=== PATIENT | male | born 1940 | race Caucasian/White ===

== ENCOUNTER 2020-09-24 10:36 | Outpatient (REF) | payer MEDICARE, SELFPAY ==
[2020-09-24 14:38] LABS: Anion Gap 14 (12-20); Blood Urea Nitrogen 17 mg/dL (9-16); Carbon Dioxide 26 mmol/L (22-29); Chloride 104 mmol/L (96-108); Estimated Glomerular Filt Rate > 60; Potassium 4.3 mmol/l (3.3-5.1); Sodium 140 mmol/L (135-145)
== END 2020-09-24 10:37 | disposition home or self-care (01) ==
LOC: HO.10HDL 10:36
PROVIDERS: PCP Family Medicine; Visit Provider Family Medicine
DX: I10 Essential (primary) hypertension (principal)
CPT/HCPCS: 80051; 82565; 84520

== ENCOUNTER 2021-04-09 11:00 | Outpatient (REF) | payer MEDICARE, SELFPAY ==
[2021-04-09 13:55] LABS: Anion Gap 14 (12-20); Blood Urea Nitrogen 16 mg/dL (9-16); Carbon Dioxide 26 mmol/L (22-29); Chloride 106 mmol/L (96-108); Estimated Glomerular Filt Rate > 60; Potassium 4.7 mmol/L (3.3-5.1); Sodium 141 mmol/L (135-145)
== END 2021-04-09 11:01 | disposition home or self-care (01) ==
LOC: HO.10HDL 11:00
PROVIDERS: Visit Provider Family Medicine
DX: I10 Essential (primary) hypertension (principal)
CPT/HCPCS: 36415; 80051; 82565; 84520

== ENCOUNTER 2021-10-23 11:00 | Outpatient (REF) | payer MEDICARE, SELFPAY ==
[2021-10-23 14:37] LABS: Anion Gap 12 (12-20); Blood Urea Nitrogen 17 mg/dL (9-16); Carbon Dioxide 27 mmol/L (22-29); Chloride 107 mmol/L (96-108); Estimated Glomerular Filt Rate > 60; Potassium 4.6 mmol/L (3.3-5.1); Sodium 141 mmol/L (135-145)
== END 2021-10-23 11:01 | disposition home or self-care (01) ==
LOC: HO.10HDL 11:00
PROVIDERS: Visit Provider Family Medicine
DX: I10 Essential (primary) hypertension (principal)
CPT/HCPCS: 36415; 80051; 82565; 84520

== ENCOUNTER → 2021-10-30 08:33 | Outpatient (BNVA) | payer MEDICARE, SELFPAY | PROVIDERS: PCP Family Medicine; Visit Provider Surgery | DX: L98.9 Disorder of the skin and subcutaneous tissue, unspecified (principal) | CPT/HCPCS: 99202 ==

== ENCOUNTER 2021-11-21 07:32 | Outpatient (REF) | payer MEDICARE, SELFPAY ==
[2021-11-21 07:42] VITALS: BP 163/84; PULSE 74; RESP 16; TEMP 36.1; O2SAT 98; BMI 25.9
[2021-11-21 08:41] VITALS: BP 157/80; PULSE 66; RESP 16; O2SAT 100
--- NOTE | 2021-11-21 08:41 | W.PM.OPN ---
Operative Note Operative Note Date of Service: 11/21/21 Narrative: Preop diagnosis: Skin lesions, left anterior chest wall, left upper back, left upper arm Postop diagnosis: the same Procedure: Excision of skin lesion, left anterior chest wall, left upper back, left upper arm Surgeon: Torrey Rogers MD gynecological assistant: STEPHEN Polo The patient is an 81-year-old male with multiple skin lesions. The lesion of the anterior chest wall is about 2.5 x 2 cm, pigmented and elevated. This skin lesion on the left upper back was about 2 cm in widest diameter also pigmented and on a stalk. The skin lesion on the left upper arm is about does than 1 cm in diameter on a very narrow stalk. He understood the technique of excision under local anesthesia. He was aware of the risks, benefits, and alternatives He was brought to the minor procedure room and placed in prone position. The back lesion was prepped and draped in the usual sterile fashion. I infiltrated the area with lidocaine 1%. I made an elliptical incision around this using blade 15 wiith margins of normal looking skin. This was carried down through the full-thickness of the skin and subcutaneous fat to excise the entire lesion. This was sent as a specimen. The incision was closed with full-thickness nylon 3-0 interrupted sutures. Dressings were applied. The patient was then placed in supine position. The area of the skin lesion on the left anterior chest wall was prepped and draped. Lidocaine 1% was used for local anesthesia. I made an elliptical incision around this skin lesion using a blade 15 with normal looking skin margins. This was carried down through the full-thickness of the skin and subcutaneous fat to excise the entire lesion. This was sent as a specimen. This incision was closed with multiple nylon 3-0 interrupted sutures The area of the lesion in the left upper arm was then prepped and draped. Lidocaine 1% was used for local anesthesia. An elliptical incision was made on the skin surrounding this using blade 15 and this carried down through the full-thickness of the skin subcutaneous fat to excise the entire lesion. This was sent as specimen. The incision was also closed with full-thickness nylon 3-0 interrupted sutures. Dressings were applied on all incisions. The procedure was then completed . The patient tolerated procedure well with no complication noted. Estimated blood loss was less than 2 cc The patient was given wound care instructions and will be seen in the office for removal sutures.
== END 2021-11-21 07:33 | disposition home or self-care (01) ==
LOC: HO.MS 07:32
PROVIDERS: PCP Family Medicine; Visit Provider Surgery
PROC: (CPT 11403; principal; 2021-11-21 08:00)
DX: L82.1 Other seborrheic keratosis (principal)
CPT/HCPCS: 11403 ×2; 11402; 88305

== ENCOUNTER 2021-11-27 09:10 | Inpatient (IN) | payer MEDICARE, SELFPAY ==
--- NOTE | ~2021-11-27 | CT_ITS ---
EXAMINATION: CT HEAD WITHOUT CONTRAST (STROKE PROTOCOL) CLINICAL INFORMATION: Stroke protocol. Left leg weakness. COMPARISON: Previous head CT November 2013 TECHNIQUE: Contiguous axial imaging was performed from the skull base to vertex without intravenous administration of contrast. This CT examination was performed using dose optimization techniques as appropriate, variously including the following: *Automated exposure control *Adjustment of mA and/or kV according to patient size (this includes techniques or standardized protocols for targeted exams where dose is matched to indication/reason for exam; i.e. extremities or head) *Use of iterative reconstruction technique DLP: 721 mGy-cm FINDINGS: There is no evidence of an extra-axial collection. There is no evidence of intra-axial or extra-axial hemorrhage. The ventricles and extra-axial CSF spaces are prominent suggestive of mild generalized atrophy. There is mild nonspecific periventricular white matter disease. No mass, mass effect or infarct is seen. Review of bone windows is normal. Paranasal sinuses, mastoid air cells and middle ears are clear. CT/CT head for stroke IMPRESSION: No acute intracranial findings. This critical result was discussed with Dr. Franks at 0940 hours on 11/27/2021. It was ascertained that the content and urgency of the report was understood at the time of direct communication.
--- NOTE | ~2021-11-27 | CT_ITS ---
EXAMINATION: CTA OF THE HEAD AND NECK CLINICAL INFORMATION: Left leg weakness. COMPARISON: Head CT from 11/27/2021. TECHNIQUE: Test bolus sequences followed by intravenous administration 70 mL of Omnipaque 350. Helical imaging was performed in the axial plane from the mediastinum to the skull vertex. Delayed postcontrast imaging of the head was also performed. The data was processed at the clinical laboratory technologist's workstation for generation of MIP sequences. Three-dimensional volume rendered reformatted images were also generated at an offline 3-D workstation. Stenoses are assessed in accordance with NASCET criteria unless otherwise indicated. This CT examination was performed using dose optimization techniques as appropriate, variously including the following: *Automated exposure control *Adjustment of mA and/or kV according to patient size (this includes techniques or standardized protocols for targeted exams where dose is matched to indication/reason for exam; i.e. extremities or head) *Use of iterative reconstruction technique DLP: 1606 mGy-cm. FINDINGS: CTA neck: The imaged aortic arch and origins of the great vessels are normal. The common carotid arteries are widely patent. The carotid bifurcations are normal. The cervical internal carotid arteries are normal. The vertebral arteries opacify normally, but have a mild beaded appearance in the upper cervical segments which may signify underlying fibromuscular dysplasia. The soft tissues of the neck are unremarkable. Multilevel cervical spondylosis and facet arthropathy noted. Subsegmental atelectatic changes visible in the lungs. CTA head: The intradural vertebral arteries and basilar artery are normal. The posterior cerebral arteries are widely patent. The internal carotid arteries are of normal caliber. The PARAMJIT and MCA vascular complexes bilaterally are normal. The venous sinuses opacify normally. CT/CT angio head neck stroke IMPRESSION: Mildly beaded appearance of the upper cervical vertebral arteries which may be due to underlying fibromuscular dysplasia. Otherwise, relatively normal CT angiogram of the head and neck. No vascular occlusion or significant stenosis. Imaging findings reported to Dr. Franks at 10:22 AM on 11/27/2021.
--- NOTE | ~2021-11-27 | MR_ITS ---
MRI OF THE BRAIN WITHOUT IV CONTRAST INDICATION: CVA. COMPARISON: CTA head and neck 11/27/2021. TECHNIQUE: Multiplanar multisequence MR imaging of the brain was obtained without IV contrast. FINDINGS: There is a small acute infarct at the junction of the right thalamus and posterior limb of the right internal capsule. There are also punctate acute infarcts within the right occipital lobe as well as the frontal lobes bilaterally and the left parietal lobe. A small lipoma is incidentally noted along the left tentorial leaflet. There is no hydrocephalus, extra-axial surface collection, or herniation. The major flow voids at the skull base are preserved. There is no intracranial hemorrhage on the gradient recalled echo acquisition. The midline structures are normal. The cerebellar tonsils are normally positioned. The cerebellum and brainstem are normal. The craniocervical junction is normal. Osseous marrow signal intensity is homogenous. The visualized soft tissues are unremarkable. MR/MR head/brain wo con IMPRESSION: - There is a small acute infarct at the junction of the right thalamus and posterior limb of the right internal capsule. There are also punctate acute infarcts within the right occipital lobe as well as the frontal lobes bilaterally and the left parietal lobe. - No mass effect and no hemorrhagic transformation.
[2021-11-27 09:13] VITALS: BP 178/88; PULSE 71; RESP 19; TEMP 36.1; O2SAT 99; BMI 26.2
--- NOTE | 2021-11-27 09:43 | ECG_ITS ---
Test Reason : stroke Blood Pressure : / mmHG Vent. Rate : 067 BPM Atrial Rate : 067 BPM P-R Int : 192 ms QRS Dur : 098 ms QT Int : 384 ms P-R-T Axes : 068 -06 010 degrees QTc Int : 405 ms Normal sinus rhythm Incomplete right bundle branch block Abnormal ECG When compared with ECG of 06-JUL-2009 14:42, Premature supraventricular complexes are no longer Present Referred By: Kimani Franks Electronically Signed By:Ruben Brito
[2021-11-27 09:50] LABS: Glucose, Whole Blood 97 mg/dL (60-115)
--- NOTE | 2021-11-27 09:50 | ED_ITS ---
HPI - Neuro Symptoms/Deficit General Chief Complaint: Stroke Stated Complaint: Left sided weakness Time Seen by Provider: 11/27/21 09:42 Source: patient Limitations: no limitations History of Present Illness HPI Narrative: pt presented to the ed c/o left leg weakness Onset (ago): hour(s) (4) Location: other (left leg weakness) History of same: No Severity: mild Quality: weak Relieving factors: none Related Data Home Medications Medication Instructions Recorded Confirmed losartan 50 mg tablet 50 mg PO DAILY 08/02/21 11/27/21 metoprolol succinate 50 mg 50 mg PO DAILY 08/02/21 11/27/21 tablet,extended release 24 hr cholecalciferol (vitamin D3) 25 25 mcg PO DAILY 11/27/21 11/27/21 mcg (1,000 unit) tablet (Vitamin D3) multivitamin 1 tab PO DAILY 11/27/21 11/27/21 Allergies Allergy/AdvReac Type Severity Reaction Status Date / Time No Known Allergies Allergy Verified 10/30/21 08:58 Review of Systems Review of Systems: Yes all other systems are reviewed and are negative Constitutional: Constitutional: Reports no additional constitutional complaints Eyes: Eyes: Reports no additional eye complaints ENT: Reports system reviewed and no additional complaints, except as documented Cardiovascular: Cardiovascular: Reports no additional cardiovascular complaints Respiratory: Respiratory: Reports no additional respiratory complaints Gastrointestinal: Gastrointestinal: Reports no additional gastrointestinal complaints Genitourinary: Genitourinary: Reports no additional male genitourinary complaints Integumentary/Breasts: Skin/Breast: Reports system reviewed and no additional complaints, except as docu Neurologic: Reports system reviewed and no additional complaints, except as documented Psychiatric: Psychiatric: Reports no additional psychiatric complaints Endocrine: Endocrine: Reports no additional endocrine complaints [facility] Past Medical History Medical History Hypertension Skin lesions Family History Family History Other Lung cancer Pancreatic cancer Social History Social History Advance Directives: Yes Advance Directives Information Provided: No Advance Directives on File: No Physical Exam Vital Signs: Vital Signs: Last Vital Signs Temp 98.0 F 11/27/21 12:36 Pulse 77 11/27/21 12:36 Resp 13 11/27/21 12:36 BP 169/87 H 11/27/21 12:36 Pulse Ox 98 11/27/21 12:36 BMI result Body Mass Index 26.2 Const: General: cooperative Nutritional Appearance: average body habitus Orientation/consciousness: oriented to person and patient oriented x3 Limitations: no limitations HENMT: Head: Yes normal to inspection Ears: hearing grossly normal bilaterally General nose exam: Normal external nose present Face and sinus: Yes normal facial exam Mouth: Normal oral and palatal mucosa present Teeth and gingiva: dentition normal Throat: Yes posterior oropharynx normal Neck: Neck: Yes normal visual inspection Chest: Chest palpation & inspection: normal inspection of the chest Resp: Effort & Inspection: normal respiratory effort and able to speak in complete sentences Auscultation: clear to auscultation bilaterally Cardio: Jugular venous distension: no JVD Rate: regular rate Rhythm: regular rhythm GI: Inspection: Yes normal to inspection Palpation (GI): Soft to palpation, not firm and no guarding Percussion: Yes normal to percussion Skin: General skin exam: no rashes or lesions noted Neuro: General: oriented to person and patient oriented x3 Cranial nerves: Yes CN's II-XII intact bilaterally Cognition (Neuro): normal cognition Motor exam (neuro): 5/5 motor strength present throughout and Pronator motor function not present Course Reevaluation(s) Reevaluation #1: 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 I spoke with Dr Snell neurologist Also patient does not an elevated troponin but no chest pain and normal EKG will trend EKG MDM - Neuro Symptoms/Deficit Lab Data Result diagrams: 11/27/21 09:50 11/27/21 11:23 Labs: Lab Results 11/27/21 11/27/21 11/27/21 Range/Units 09:43 09:44 09:50 WBC 6.1 (4.8-10.8) X10*3/uL RBC 5.07 (4.60-5.80) X10*6/uL Hgb 15.9 (14.0-18.0) g/dl Hct 47.0 (42.0-52.0) % MCV 92.7 (80.0-98.0) fL MCH 31.4 (27.0-33.0) pg MCHC 33.8 (31.0-36.0) g/dl RDW 13.2 (11.0-16.0) % Plt Count 170 (160-400) X10*3/uL MPV 9.3 L (9.4-12.4) fL Immature Gran % (Auto) 0.3 (0.0-0.4) % Neut % (Auto) 70.3 (45-73) % Lymph % (Auto) 16.4 L (20-40) % Sunflower % (Auto) 8.0 (2-11) % Eos % (Auto) 3.9 (0-4) % Baso % (Auto) 1.1 (0-2) % Lymph # (Auto) 1.0 L (1.2-4.9) X10*3/uL Sunflower # (Auto) 0.5 (0.1-1.2) X10*3/uL Eos # (Auto) 0.2 (0.0-0.4) X10*3/uL Baso # (Auto) 0.1 (0.0-0.2) X10*3/uL Abs Immat Gran (auto) 0.02 (0.00-0.03) X10*3/uL Absolute Neuts (auto) 4.3 (2.0-8.3) x10*3/uL Absolute Nucleated RBC 0.000 (0.0-0.012) X10*3/uL Nucleated RBC % (auto) 0.0 (0.0-0.2) /100WBC PT (9.9-13.0) SEC Whole Blood PT 13.3 (11.1-13.5) sec INR (0.9-1.1) Whole Blood INR 1.1 (0.9-1.1) Sodium (135-145) mmol/L Potassium (3.3-5.1) mmol/L Chloride (96-108) mmol/L Carbon Dioxide (22-29) mmol/L Anion Gap (12-20) BUN (9-16) mg/dL Creatinine (0.5-1.4) mg/dL Estim Creat Clear Calc Estimated GFR POC Glucose 97 (60-115) mg/dL Random Glucose (60-115) mg/dL Calcium (8.4-10.2) mg/dL Total Bilirubin (0.0-1.0) mg/dL AST (5-37) U/L ALT (0-40) U/L Alkaline Phosphatase (39-117) U/L Troponin I High Sens (<3.5-35.0) ng/L Total Protein (6.5-8.0) g/dL Albumin (3.5-5.0) g/dL 11/27/21 11/27/21 11/27/21 Range/Units 09:50 09:50 11:23 WBC (4.8-10.8) X10*3/uL RBC (4.60-5.80) X10*6/uL Hgb (14.0-18.0) g/dl Hct (42.0-52.0) % MCV (80.0-98.0) fL MCH (27.0-33.0) pg MCHC (31.0-36.0) g/dl RDW (11.0-16.0) % Plt Count (160-400) X10*3/uL MPV (9.4-12.4) fL Immature Gran % (Auto) (0.0-0.4) % Neut % (Auto) (45-73) % Lymph % (Auto) (20-40) % Sunflower % (Auto) (2-11) % Eos % (Auto) (0-4) % Baso % (Auto) (0-2) % Lymph # (Auto) (1.2-4.9) X10*3/uL Sunflower # (Auto) (0.1-1.2) X10*3/uL Eos # (Auto) (0.0-0.4) X10*3/uL Baso # (Auto) (0.0-0.2) X10*3/uL Abs Immat Gran (auto) (0.00-0.03) X10*3/uL Absolute Neuts (auto) (2.0-8.3) x10*3/uL Absolute Nucleated RBC (0.0-0.012) X10*3/uL Nucleated RBC % (auto) (0.0-0.2) /100WBC PT 11.8 (9.9-13.0) SEC Whole Blood PT (11.1-13.5) sec INR 1.0 (0.9-1.1) Whole Blood INR (0.9-1.1) Sodium 143 (135-145) mmol/L Potassium 5.0 (3.3-5.1) mmol/L Chloride 108 (96-108) mmol/L Carbon Dioxide 27 (22-29) mmol/L Anion Gap 13 (12-20) BUN 17 H (9-16) mg/dL Creatinine 1.10 (0.5-1.4) mg/dL Estim Creat Clear Calc 44.2 Estimated GFR > 60 POC Glucose (60-115) mg/dL Random Glucose 116 H (60-115) mg/dL Calcium 9.3 (8.4-10.2) mg/dL Total Bilirubin 0.7 (0.0-1.0) mg/dL AST 26 (5-37) U/L ALT 24 (0-40) U/L Alkaline Phosphatase 78 (39-117) U/L Troponin I High Sens 110.0 H* (<3.5-35.0) ng/L Total Protein 7.5 (6.5-8.0) g/dL Albumin 4.4 (3.5-5.0) g/dL Imaging Data MRI - head: Radiologist's impression: Multiplanar multisequence MR imaging of the brain was obtained without IV contrast. FINDINGS: There is a small acute infarct at the junction of the right thalamus and posterior limb of the right internal capsule. There are also punctate acute infarcts within the right occipital lobe as well as the frontal lobes bilaterally and the left parietal lobe. A small lipoma is incidentally noted along the left tentorial leaflet. There is no hydrocephalus, extra-axial surface collection, or herniation. The major flow voids at the skull base are preserved. There is no intracranial hemorrhage on the gradient recalled echo acquisition. The midline structures are normal. The cerebellar tonsils are normally positioned. The cerebellum and brainstem are normal. The craniocervical junction is normal. Osseous marrow signal intensity is homogenous. The visualized soft tissues are unremarkable. MR/MR head/brain wo con IMPRESSION: - There is a small acute infarct at the junction of the right thalamus and posterior limb of the right internal capsule. There are also punctate acute infarcts within the right occipital lobe as well as the frontal lobes bilaterally and the left parietal lobe. ? - No mass effect and no hemorrhagic transformation. Dictated By: SHERRY MARIANO MD Signed By: <Electronically signed by SHERRY MARIANO MD in OV> 11/27/21 1235 ECG Data ECG interpretation date: 11/27/21 ECG interpretation time: 09:54 Pacemaker model: NSR 67 NSR no ischemic changes NIH Stroke Scale Level of Consciousness: Alert Level of Consciousness Questions: Answers both questions correctly Level of Consciousness Commands: Performs both tasks correctly Best Gaze: Normal Visual: No visual loss Facial Palsy: Normal Motor Arm (Right): No drift Motor Arm (Left): No drift Motor Leg (Right): No drift Motor Leg (Left): No drift Limb Ataxia: Absent Sensory: Normal Best Language: No aphasia Dysarthia: Normal Extinction and Inattention: No abnormality Score: 0 Discharge Plan Discharge Clinical Impression: Acute CVA (cerebrovascular accident) Patient Disposition: Admitted As Inpatient
[2021-11-27 09:56] LABS: MANUAL DIFF FLAG NO
[2021-11-27 10:00] LABS: Basophils Absolute Auto 0.1 X10*3/uL (0.0-0.2); Basophils Percent Auto 1.1 % (0-2); Eosinophils Absolute Auto 0.2 X10*3/uL (0.0-0.4); Eosinophils Percent Auto 3.9 % (0-4); Hemoglobin 15.9 g/dl (14.0-18.0); Imm Gran Abs Auto 0.02 X10*3/uL (0.00-0.03); Imm Gran Pct Auto 0.3 % (0.0-0.4); Lymphocytes Percent Auto 16.4 % (20-40); Mean Corpuscular HGB Conc 33.8 g/dl (31.0-36.0); Mean Corpuscular Hemoglobin 31.4 pg (27.0-33.0); Mean Corpuscular Volume 92.7 fL (80.0-98.0); Mean Platelet Volume 9.3 fL (9.4-12.4); Monocytes Absolute Auto 0.5 X10*3/uL (0.1-1.2); Neutrophils Absolute Auto 4.3 x10*3/uL (2.0-8.3); Neutrophils Percent Auto 70.3 % (45-73); Platelet Count 170 X10*3/uL (160-400); Red Blood Count 5.07 X10*6/uL (4.60-5.80); Red Cell Distribution Width 13.2 % (11.0-16.0); White Blood Count 6.1 X10*3/uL (4.8-10.8)
[2021-11-27 10:04] LABS: Prothrombin Time 11.8 SEC (9.9-13.0)
[2021-11-27] MEDS: iohexoL 350 MG/ML 100 ML INFUS..BTL IV (10:11)
[2021-11-27 10:22] LABS: Prothrombin Time Whole Bld POC 13.3 sec (11.1-13.5); ~PT, ~INR - Anti Coag Clinic 1.1 (0.9-1.1)
--- NOTE | 2021-11-27 10:56 | PC.NURSE ---
PT FROM HOME STATES LEFT LEG WEAKNESS THIS AM, WAS DRAGGING ON FLOOR ON AMB TO BR. HYPERTENSIVE ON TRIAGE, LABS IV EKG CT OBTAINED, PT AMB TO BR APPEARED TO HAVE STEADY GAIT, WAITING ON MRI
--- NOTE | 2021-11-27 11:52 | P.HPHOSP_ITS ---
History of Present Illness Date of Service: 11/27/21 Chief Complaint: Woke up with left leg weakness 81 year old male with HTN who woke up and going to the bathroom and noted weakness in left leg and draging the foot. No other weakness, no change in speech, no visual changes. CT head and CTA show no acute finding but presumed stroke. MRI shows a small acute infarct at the junction of the right thalamus and posterior limb of the right internal capsule. There are also punctate acute infarcts within the right occipital lobe as well as the frontal lobes bilaterally and the left parietal lobe . Out of window for tPA Review of Systems Review of Systems: Gen: no fever Resp: no sob, no cough CV: no chest, no GILMORE, no leg edema GI: No n/v, no abd pain Neuro: No confusion, weakness in the left leg Yes all other systems are reviewed and are negative [facility] Medical History Hypertension Skin lesions Family History Other Lung cancer Pancreatic cancer Social History Advance Directives: Yes Advance Directives Information Provided: No Advance Directives on File: No service: No Current occupational status: retired Meds Allergies Allergy/AdvReac Type Severity Reaction Status Date / Time No Known Allergies Allergy Verified 10/30/21 08:58 Home Medications Medication Instructions Recorded Confirmed Last Taken Type losartan 50 mg tablet 50 mg PO DAILY 08/02/21 11/27/21 11/26/21 History metoprolol succinate 50 mg 50 mg PO DAILY 08/02/21 11/27/21 11/26/21 History tablet,extended release 24 hr cholecalciferol (vitamin D3) 25 25 mcg PO DAILY 11/27/21 11/27/21 11/26/21 History mcg (1,000 unit) tablet (Vitamin D3) multivitamin 1 tab PO DAILY 11/27/21 11/27/21 11/26/21 History Physical Exam Vital Signs and Narrative: Vital Signs: Last Vital Signs Temp 97 F 11/27/21 09:13 Pulse 71 11/27/21 09:13 Resp 19 11/27/21 09:13 BP 178/88 H 11/27/21 09:13 Pulse Ox 99 11/27/21 09:13 BMI result Body Mass Index 26.2 Const: Other: Constitutional: Alert, in no distress, Mental Status: Oriented to person, place and time. Eyes: Pupils are equal, round and reactive to light. Ear, Nose and Throat: Oropharynx clear, mucous membranes moist. Ears and nose without eformities. Trachea midline. Respiratory: Clear to auscultation. No wheezing, rales or rhonchi. Cardiovascular: S1 S2 regular. No murmurs, rubs or gallops. Gastrointestinal: Abdomen soft, non-tender, non-distended. Normal bowel sounds.? Neurologic: Cranial nerves II-XII grossly intact. No focal neurological deficits. Moves all extremities spontaneously.? Skin: No rashes or lesions.? Musculoskeletal: No cyanosis or clubbing. Psychiatric: Normal mood and affect? Results Labs CBC and Chem 7: 11/27/21 09:50 11/27/21 11:23 Labs: Laboratory Results - last 24 hr 11/27/21 11/27/21 11/27/21 09:43 09:44 09:50 MCV 92.7 MCH 31.4 MCHC 33.8 RDW 13.2 Plt Count 170 MPV 9.3 L Immature Gran % (Auto) 0.3 Neut % (Auto) 70.3 Lymph % (Auto) 16.4 L Jackson % (Auto) 8.0 Eos % (Auto) 3.9 Baso % (Auto) 1.1 Lymph # (Auto) 1.0 L Jackson # (Auto) 0.5 Eos # (Auto) 0.2 Baso # (Auto) 0.1 Abs Immat Gran (auto) 0.02 Absolute Neuts (auto) 4.3 Absolute Nucleated RBC 0.000 Nucleated RBC % (auto) 0.0 PT Whole Blood PT 13.3 INR Whole Blood INR 1.1 POC Glucose 97 Troponin I High Sens 11/27/21 11/27/21 09:50 09:50 MCV MCH MCHC RDW Plt Count MPV Immature Gran % (Auto) Neut % (Auto) Lymph % (Auto) Jackson % (Auto) Eos % (Auto) Baso % (Auto) Lymph # (Auto) Jackson # (Auto) Eos # (Auto) Baso # (Auto) Abs Immat Gran (auto) Absolute Neuts (auto) Absolute Nucleated RBC Nucleated RBC % (auto) PT 11.8 Whole Blood PT INR 1.0 Whole Blood INR POC Glucose Troponin I High Sens 110.0 H* Imaging Radiologist's Impressions: Impressions Head CT 11/27/21 09:27 IMPRESSION: No acute intracranial findings. This critical result was discussed with Dr. Franks at 0940 hours on 11/27/2021. It was ascertained that the content and urgency of the report was understood at the time of direct communication. Head/Neck CTA 11/27/21 10:12 IMPRESSION: Mildly beaded appearance of the upper cervical vertebral arteries which may be due to underlying fibromuscular dysplasia. Otherwise, relatively normal CT angiogram of the head and neck. No vascular occlusion or significant stenosis. Imaging findings reported to Dr. Franks at 10:22 AM on 11/27/2021. Assessment and Plan (1) Stroke: Status: Acute 81 year male with HTN presenting with left leg weakness and found to have multiple embolic strokess, elevated troponin 1/ Acute embolic strokes 2/ HTN 3/ Elevated troponin without chest pain or ischemic ECG changes. (2) Hypertension: Status: Acute 81 year old male with HTN presenting with left leg weakness Left leg weakness HTN Quality Stroke Does the patient have a stroke diagnosis?: No VTE Prior VTE?: No VTE Risk Level:: Medical - moderate - high VTE Device Contraindication: Treatment Not Indicated VTE Drug Contraindication: N/A - Med Ordered
[2021-11-27 11:54] LABS: Alanine Aminotransferase 24 U/L (0-40); Albumin Level 4.4 g/dL (3.5-5.0); Alkaline Phosphatase 78 U/L (39-117); Anion Gap 13 (12-20); Aspartate Amino Transferase 26 U/L (5-37); Bilirubin Total 0.7 mg/dL (0.0-1.0); Blood Urea Nitrogen 17 mg/dL (9-16); Calcium 9.3 mg/dL (8.4-10.2); Carbon Dioxide 27 mmol/L (22-29); Chloride 108 mmol/L (96-108); Creatinine Clr Calc Pharmacy 44.2; Estimated Glomerular Filt Rate > 60; Glucose Random 116 mg/dL (60-115); Sodium 143 mmol/L (135-145); Total Protein 7.5 g/dL (6.5-8.0)
[2021-11-27 12:36] VITALS: BP 169/87; PULSE 77; RESP 13; TEMP 36.7; O2SAT 98
--- NOTE | 2021-11-27 12:39 | PHA.MEDREC ---
Pharmacy Consult ? Medication Reconciliation Pharmacy has completed the medication reconciliation. Patient reports two prescription medications and says he takes a lot of supplement but unsure of what supplements. Elsa Ho, FrankD
--- NOTE | 2021-11-27 13:00 | CA_ITS ---
Transthoracic Echocardiogram Patient (Last, First, Middle): Tristan Boo J Gender: Male Date of : 1940 Age: 81 Procedure Date: 11/27/2021 Procedure Type: Transthoracic Echocardiogram Location: ER Height: 165.1 cm Weight: 71.67 kg BSA: 1.79 m2 Heart Rate: bpm BP: 169 / 87 mmHg Cage/Vault Supervisor: CARLITOS Referring MD: Ari Taylor MD Symptoms: embolic stroke Study Quality: Good Conclusions: - Normal left ventricular size and systolic function. - Diastolic function is normal for age. - Normal right ventricular cavity size and systolic function. Findings Left Ventricle Normal left ventricular size and systolic function. There is mildly increased left ventricular wall thickness. The visually estimated ejection fraction is between 55-60%. There is no evidence of regional wall motion abnormalities. Diastolic function is normal for age. Right Ventricle Normal right ventricular cavity size and systolic function. Atria The left atrium is likely dilated. The right atrium is normal in size. Aortic Valve Normal aortic valve structure and function. There is no aortic valve stenosis. There is trace (trivial) aortic valve regurgitation. Mitral Valve Normal mitral valve structure and function. There is no mitral valve regurgitation. There is no mitral valve stenosis. Pulmonic Valve Normal pulmonic valve structure and function. There is trace pulmonic valve regurgitation. Tricuspid Valve Normal tricuspid valve structure and function. There is no tricuspid valve regurgitation. Normal right atrial pressure. There is no evidence of pulmonary hypertension. Great Vessels There is mild dilatation of the ascending aorta measuring 3.80 cm. The visualized portions of the pulmonary artery and branches are normal. Venous The inferior vena cava is normal in size and collapses greater than 50% with inspiration. Pericardium/Pleural There is no evidence of pericardial effusion. Prior Study Comparison No prior study available for comparison. Measurements 2D Linear Measurements IVSd: 1.10 0.6-0.9/0.6-1.0 cm LVIDd: 4.07 3.9-5.3/4.2-5.9 cm LVIDd Index: 2.27 2.4-3.2/2.2-3.1 cm/m2 LVIDs: 2.66 2.0-3.6 cm LVPWd: 1.07 0.7-1.1 cm Ao Root: 3.70 2.1-3.5 cm LA Diam: 3.00 2.7-3.8/3.0-4.0 cm LAIDs Index: 1.68 1.5-2.3 cm/m2 LV Mass: 182.57 67-162/88-224 g LV Mass Index: 102.00 43-95/49-115 g/m2 LVOT Diam: 2.00 3.0+(-)1.3 cm 2D Systolic Function EF 4C: 55.00 >55% EF 2C: 65.70 >55% EF BiP: 60.60 >55% Mitral Valve MV Pk E: 0.57 MV PK A: 0.69 MV Decel Time: 263.00 E/A: 0.80 E'Lateral: 7.29 E'Medial: 6.42 E/E' Med: 8.90 E/E' Lat: 7.90 PHT: 77.00 MVA PHT: 2.86 Decel [place]: 2.19 Aortic Valve AoV Pk Zheng: 1.10 AoV Mn Zheng: 0.81 AoV VTI: 0.25 AoV Pk Grad: 5.00 Aov Mn Grad: 3.00 ELI Cont.VTI: 2.85 LVOT LVOT Pk Zheng: 1.04 LVOT Mn Zheng: 0.65 LVOT VTI: 0.23 LVOT Pk Grad: 4.00 LVOT Mn Grad: 2.00 LVOT Diam: 2.00 LVOT Area: 3.14 Diastolic Function MV Pk E: 0.57 MV Pk A: 0.69 E/A: 0.80 E'Medial: 6.42 E/E' Med: 8.90 E' Laterial: 7.29 E/E' Lat: 7.90 Right Ventricle TAPSE (mm): 1.81 TVS' Zheng: 10.80 Tricuspid Valve TR Pk Zheng: 1.94 TR Pk Grad: 15.00 RA Press: 3.00 RVSP: 18.00 Great Vessels Aorta Ao Root-2D: 3.70 2.0-3.7 cm Ao Asc: 3.80 2.1-3.4 cm Ao Arch: 3.10 Updated in Other Vendor System with Status of Final Ruben Brito MD electronically signed on 11/28/2021 6:33:55 AM with status of Final
[2021-11-27 13:32] LABS: COVID-19 Test Negative (Negative)
--- NOTE | 2021-11-27 14:13 | PM.NEUROCN ---
History of Present Illness Data of Consult Service Date: 11/27/21 Primary Care Provider: Vinod Ford MD [facility] Reason for consult: Stroke 81 years old man with underlying history of hypertension came to hospital with new onset of left-sided weakness. He said that he slept well last night and when he woke up he had difficulty walking on his left leg. There was no pain or headache. When I saw him he was feeling better. Due to timing issues he was not considered a candidate for acute stroke treatment. Review of Systems Review of Systems: No recent cold or flu-like illness. [facility] Past Medical History Medical History Hypertension Skin lesions Family History Family History Other Lung cancer Pancreatic cancer Social History Social History Advance Directives: Yes Advance Directives Information Provided: No Advance Directives on File: No Meds Allergies Allergy/AdvReac Type Severity Reaction Status Date / Time No Known Allergies Allergy Verified 10/30/21 08:58 Active Medications: Current Medications Acetaminophen (Acetaminophen 325 Mg Tablet) 650 mg PO Q6H PRN PRN Reason: Pain, Mild (Pain Scale 1-3) Aspirin (Aspirin Enteric Coated 81 Mg Tablet.Dr) 81 mg PO DAILY MARINA Atorvastatin Calcium (Atorvastatin Calcium 40 Mg Tablet) 40 mg PO BEDTIME MARINA Heparin Sodium (Porcine) (Heparin Sodium,Porcine 5,000 Unit/Ml Vial) 5,000 unit SUBCUT BID MARINA Melatonin (Melatonin 3 Mg Tablet) 6 mg PO BEDTIME PRN PRN Reason: Insomnia Pharmacy Consult (Consult Rx Perform Med Rec) 1 each MISCELLANE ONCE PRN PRN Reason: Consult order Home Medications Medication Instructions Recorded Confirmed Last Taken Type losartan 50 mg tablet 50 mg PO DAILY 08/02/21 11/27/21 11/26/21 History metoprolol succinate 50 mg 50 mg PO DAILY 08/02/21 11/27/21 11/26/21 History tablet,extended release 24 hr cholecalciferol (vitamin D3) 25 25 mcg PO DAILY 11/27/21 11/27/21 11/26/21 History mcg (1,000 unit) tablet (Vitamin D3) multivitamin 1 tab PO DAILY 11/27/21 11/27/21 11/26/21 History Physical Exam Vital Signs: Vital Signs: Last Vital Signs Temp 98.0 F 11/27/21 12:36 Pulse 77 11/27/21 12:36 Resp 13 11/27/21 12:36 BP 169/87 H 11/27/21 12:36 Pulse Ox 98 11/27/21 12:36 BMI result Body Mass Index 26.2 Neuro: Other: He was alert and awake with normal spontaneity of speech fluency comprehension and affect. Pupils were equal and reactive to light. Extraocular muscles were intact. Visual priest are full. Face was symmetrical. There was no pronator drift. Deep tendon reflexes were absent with equivocal plantars. Results Labs CBC & Chem 7: 11/27/21 09:50 11/27/21 11:23 Labs: Short CBC 11/27/21 Range/Units 09:50 WBC 6.1 (4.8-10.8) X10*3/uL Hgb 15.9 (14.0-18.0) g/dl Hct 47.0 (42.0-52.0) % Plt Count 170 (160-400) X10*3/uL BMP 11/27/21 11:23 Sodium 143 Potassium 5.0 Chloride 108 Carbon Dioxide 27 BUN 17 H Creatinine 1.10 Calcium 9.3 Liver Function 11/27/21 Range/Units 11:23 Total Bilirubin 0.7 (0.0-1.0) mg/dL AST 26 (5-37) U/L ALT 24 (0-40) U/L Alkaline Phosphatase 78 (39-117) U/L Albumin 4.4 (3.5-5.0) g/dL His MRI of brain revealed a small right lateral thalamic acute ischemic infarction and minimal microvascular disease otherwise. 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 Assessment and Plan (1) Stroke: Status: Acute 81 years old man with hypertension and small acute right lateral thalamic ischemic infarction causing left-sided weakness. Stroke was relatively mild and he was already better. At this time my recommendations are to continue anti-platelet agent, blood pressure control and involved PT and OT. Once he is able to get up and walk around he could be discharged to home. Procedures Date of Service Date of Service: 11/27/21
--- NOTE | 2021-11-27 16:03 | MHC.STROKE ---
0910 PATIENT WALKED IN, NOTIFIED BY ED THAT THE STROKE PROTOCOL IS ACTIVATED FOR LEFT SIDED WEAKNESS, LKW 11/26/21 AT 2300. WOKE WITH LEFT SIDED WEAKNESS, CT, CTA H/N DONE, MRI CONFIRMED MULTIPLE EMBOLIC ISCHEMIC STROKES. OUT OF THE WINDOW FOR TPA PLUS NIHSS = 0, NON-DISABLING UPON ARRIVAL. HX HTN. PASSED NURSING SWALLOW SCREEN, STROKE ORDERS IN PLACE. PLEASE DOCUMENT STROKE EDUCATION AND PROVIDE BOOKLET TO THE PATIENT.
[2021-11-27 16:21] VITALS: BP 146/72; PULSE 84; RESP 14; TEMP 36.4; O2SAT 96
[2021-11-27] MEDS: Atorvastatin Calcium 40 MG TABLET PO (20:50)
[2021-11-27] MEDS: Heparin Sodium,Porcine 5,000 UNIT/ML VIAL 5000 UNIT SUBCUT (20:50)
[2021-11-28] VITALS: BP 140/77; PULSE 83; RESP 16; TEMP 36.7
[2021-11-28] MEDS: Acetaminophen 325 MG TABLET 650 MG PO (00:09)
[2021-11-28 02:00] VITALS: BP 155/77; PULSE 78; RESP 19; TEMP 36.5; O2SAT 92
[2021-11-28 04:00] VITALS: BP 156/85; PULSE 76; RESP 16; TEMP 36.7; O2SAT 92
[2021-11-28 06:30] LABS: Cholesterol 161 mg/dL; HDL Cholesterol 29 mg/dL; LDL Cholesterol Calculated 94 mg/dl; Triglycerides 193 mg/dL
[2021-11-28 08:01] VITALS: BP 158/77; PULSE 92; RESP 15; TEMP 36.7; O2SAT 96
[2021-11-28] MEDS: Aspirin Enteric Coated 81 MG TABLET.DR PO (09:17)
--- NOTE | 2021-11-28 11:48 | MHC.CM.PN ---
PT REPORTS HE LIVES WITH HIS S/O OF 30+ YEARS HE REPORTS HE IS INDEPENDENT WITH ALL CARE, USES NO DME AND HAS NO SERVICES PT REPORTS HE DOES HAVE A HCP NAMING HIS S/O HIS AGENT, COPY REQUESTED PT REPORTS HE IS A HOWEVER IS NOT SERVICE CONNECTED PTS PCP IS MIKE WARREN. PT REPORTS HE IS VACCINATED AGAINST COVID-19 (PFIZER X 3) PTS MEDICARE RIGHTS WERE DELIVERED, ORIGINAL WAS LEFT AT BEDSIDE, COPY SENT TO [facility] CURRENT DC PLAN IS HOME WITH NO SERVICES S/O TO TRANSPORT PER MD ROUNDS, PT LIKELY TO DC TODAY
--- NOTE | 2021-11-28 12:24 | P.DS_ITS ---
DS: Providers Provider Date of Service: 11/28/21 Date of admission: 11/27/21 12:47 Primary care physician: Vinod Ford MD Consults: 11/27/21 12:24 Consult to Neurology Routine Consulting Provider: Nafisa Dai Reason for consultation: Left leg weakness Has provider been notified: No DS: Diagnosis Discharge Diagnosis (1) Stroke: Status: Acute (2) Hypertension: Status: Acute DS: Summary Hospital Course Hospital Course: 81 year old male with HTN who woke up and going to the bathroom and noted weakness in left leg and draging the foot. No other weakness, no change in speech, no visual changes. CT head and CTA show no acute finding but presumed stroke. MRI shows a small acute infarct at the junction of the right thalamus and posterior limb of the right internal capsule. There are also punctate acute infarcts within the right occipital lobe as well as the frontal lobes bilaterally and the left parietal lobe . Out of window for tPA Hosptial cours: Patient presented with transient left leg weakness and noted to have s small thalamic infarct on MRI, his symptoms have completly resolved. Neurology recommend BP med, and antiplets. Will add Asiprin, adjust BP meds with increase in Losartan to 75 and continue Metoprolol at 50 bid, LDL is 84, HDL 29, Chol 161, TG 193.. Adding Lipitor 10 at bed time. Bedtime. PT saw him and given that he's doing so well does not need any services. Time Spent with Patient Time attestation: Total time spent providing and/or coordinating discharge services: Discharge coordination time: Greater than 30 minutes Quality: Stroke Does the patient have a stroke diagnosis?: No Physical Exam Verdana 4l Vital Signs: Verdana 4d Verdana 4d Vital Signs: Verdana 4d Verdana 4Bd Last Vital Signs Verdana 4d Lehr Cutter New 4d Lehr Cutter New 4d Temp 98.1 F 11/28/21 08:01 Lehr Cutter New 4d Pulse 92 11/28/21 08:01 Lehr Cutter NewNew 4d Resp 15 11/28/21 08:01 BP 158/77 H 11/28/21 08:01 Pulse Ox 96 11/28/21 08:01 BMI result Body Mass Index 26.2 DS: Data Data Completed and Pending Labs on day of discharge: Laboratory Results - last 24 hr 11/27/21 11/28/21 13:09 05:45 Triglycerides 193 Cholesterol 161 LDL Cholesterol, Calc 94 HDL Cholesterol 29 COVID-19 (DAVINA) Negative COVID-19 Clin Com See Note Discharge Plan Discharge Anticipated Discharge Date/Time: 11/28/21 12:15 Patient Disposition: Home, Self-Care Discharge Diagnosis: Acute stroke with left weakness that has resolved Referrals: Vinod Ford MD [Primary Care Provider] - 1 Week Discharge Medications: New losartan 50 mg tablet 75 mg PO DAILY Qty: 90 RF: 0 aspirin 81 mg capsule 81 mg PO DAILY Qty: 90 RF: 0 atorvastatin [Lipitor] 10 mg tablet 10 mg PO BEDTIME Qty: 30 RF: 0 Continued multivitamin Tablet 1 tab PO DAILY RF: 0 cholecalciferol (vitamin D3) [Vitamin D3] 25 mcg (1,000 unit) Tablet 25 mcg PO DAILY RF: 0 metoprolol succinate 50 mg tablet extended release 24 hr 50 mg PO DAILY RF: 0 Discontinued losartan 50 mg tablet 50 mg PO DAILY RF: 0 Discharge Orders: Discharge Order (Routine); Ordered 11/28/21 Ordered By: Ari Taylor Diet: advance to usual diet Activity on Discharge: As tolerated Stand Alone Forms: Patient Portal Discharge page Care Plan Goals: prevent stroke Health Concerns: stroke, high blood pressure Plan of Treatment: Take your blood pressure medications as directed anf folow up with your Doctor in a week. Please note that Losartan has been increased to 75 ( you can take 1 and half pil of present 50 mg), continue taking metoprolol at 50 mg twice daily, take 1 baby aspirin daily and take Lipitor 10 mg at bedtime... Assessment: as above
== END 2021-11-28 14:45 | disposition home or self-care (01) | DRG 65 ==
LOC: HO.ED 12:43 → HO.EDOVER 13:00
PROVIDERS: Admitting Provider Internal Medicine; Emergency Provider Emergency Medicine; PCP Family Medicine; Visit Provider Internal Medicine
DX: I63.431 Cerebral infarction due to embolism of right posterior cerebral artery (principal); G81.94 Hemiplegia, unspecified affecting left nondominant side; Z20.822 Contact with and (suspected) exposure to COVID-19; R29.700 NIHSS score 0; I10 Essential (primary) hypertension; Z79.82 Long term (current) use of aspirin; Z79.899 Other long term (current) drug therapy
CPT/HCPCS: 36415; 70450; 70496; 70498; 70551; 80053; 80061; 82947; 84484; 85025; 85610; 87635; 93005; 93306; 97162; 97165; 99285; Q9967

== ENCOUNTER → 2021-12-04 10:42 | Outpatient (BNVA) | payer MEDICARE, SELFPAY | PROVIDERS: PCP Family Medicine; Visit Provider Surgery | DX: Z48.817 Encounter for surgical aftercare following surgery on the skin and subcutaneous tissue (principal); Z87.2 Personal history of diseases of the skin and subcutaneous tissue | CPT/HCPCS: 99212 ==

== ENCOUNTER 2022-03-19 12:11 | Outpatient (REF) | payer MEDICARE, SELFPAY ==
[2022-03-19 13:34] LABS: Alanine Aminotransferase 29 U/L (0-40); Anion Gap 11 (12-20); Aspartate Amino Transferase 22 U/L (5-37); Blood Urea Nitrogen 14 mg/dL (9-16); Carbon Dioxide 29 mmol/L (22-29); Chloride 106 mmol/L (96-108); Estimated Glomerular Filt Rate > 60; Potassium 4.7 mmol/L (3.3-5.1); Sodium 141 mmol/L (135-145)
== END 2022-03-19 12:12 | disposition home or self-care (01) ==
LOC: HO.10HDL 12:11
PROVIDERS: Visit Provider Family Medicine
DX: I10 Essential (primary) hypertension (principal); E78.00 Pure hypercholesterolemia, unspecified; Z79.899 Other long term (current) drug therapy
CPT/HCPCS: 36415; 80051; 82550; 82565; 84450; 84460; 84520

== ENCOUNTER → 2022-12-03 14:26 | Outpatient (BNVA) | payer MEDICARE, SELFPAY | PROVIDERS: PCP Family Medicine; Referring Provider Family Medicine; Visit Provider Surgery | DX: L98.9 Disorder of the skin and subcutaneous tissue, unspecified (principal) | CPT/HCPCS: 99212 ==

== ENCOUNTER 2022-12-17 09:17 | Outpatient (REF) | payer MEDICARE, SELFPAY ==
[2022-12-17 14:38] LABS: Alanine Aminotransferase 27 U/L (0-40); Anion Gap 16 (12-20); Aspartate Amino Transferase 22 U/L (5-37); Blood Urea Nitrogen 16 mg/dL (9-16); Carbon Dioxide 22 mmol/L (22-29); Chloride 109 mmol/L (96-108); Estimated Glomerular Filt Rate > 60; Potassium 4.7 mmol/L (3.3-5.1); Sodium 142 mmol/L (135-145)
== END 2022-12-17 09:18 | disposition home or self-care (01) ==
LOC: HO.10HDL 09:17
PROVIDERS: Visit Provider Family Medicine
DX: I10 Essential (primary) hypertension (principal)
CPT/HCPCS: 36415; 80051; 82550; 82565; 84450; 84460; 84520

== ENCOUNTER 2022-12-18 13:10 | Outpatient (REF) | payer MEDICARE, SELFPAY | END 2022-12-18 13:11 | disposition home or self-care (01) | LOC: HO.LNP 13:10 | PROVIDERS: PCP Family Medicine; Visit Provider Surgery | DX: L85.8 Other specified epidermal thickening (principal) | CPT/HCPCS: 11441; 11442; 88304; 88305 ==

== ENCOUNTER → 2022-12-24 13:11 | Outpatient (BNVA) | payer MEDICARE, SELFPAY | PROVIDERS: PCP Family Medicine; Visit Provider Surgery | DX: Z13.89 Encounter for screening for other disorder (principal) | CPT/HCPCS: 99212 ==

== ENCOUNTER 2023-08-21 11:54 | Outpatient (REF) | payer MEDICARE, SELFPAY ==
[2023-08-21 14:48] LABS: Anion Gap 13 (12-20); Blood Urea Nitrogen 17 mg/dL (9-16); Carbon Dioxide 26 mmol/L (22-29); Chloride 109 mmol/L (96-108); Estimated Glomerular Filt Rate > 60; Potassium 4.9 mmol/L (3.3-5.1); Sodium 143 mmol/L (135-145)
== END 2023-08-21 11:55 | disposition home or self-care (01) ==
LOC: HO.10HDL 11:54
PROVIDERS: Visit Provider Family Medicine
DX: I10 Essential (primary) hypertension (principal)
CPT/HCPCS: 36415; 80051; 82565; 84520

== ENCOUNTER 2023-12-14 12:12 | Outpatient (REF) | payer MEDICARE, SELFPAY ==
[2023-12-14 13:55] LABS: Anion Gap 13 (12-20); Blood Urea Nitrogen 17 mg/dL (9-16); Carbon Dioxide 28 mmol/L (22-29); Chloride 106 mmol/L (96-108); Estimated Glomerular Filt Rate > 60; Sodium 143 mmol/L (135-145)
[2023-12-14 14:08] LABS: Prostate Specific Antigen Scr 2.31 ng/mL (<0.05-4.0)
== END 2023-12-14 12:13 | disposition home or self-care (01) ==
LOC: HO.10HDL 12:12
PROVIDERS: Visit Provider Family Medicine
DX: Z12.5 Encounter for screening for malignant neoplasm of prostate (principal); N40.0 Benign prostatic hyperplasia without lower urinary tract symptoms; I10 Essential (primary) hypertension; Z80.42 Family history of malignant neoplasm of prostate
CPT/HCPCS: 36415; 80051; 82565; 84153; 84520

== ENCOUNTER 2024-05-03 11:46 | Outpatient (REF) | payer MEDICARE, SELFPAY ==
[2024-05-03 13:52] LABS: Alanine Aminotransferase 18 U/L (0-40); Anion Gap 14 (12-20); Aspartate Amino Transferase 17 U/L (5-37); Blood Urea Nitrogen 17 mg/dL (9-16); Carbon Dioxide 27 mmol/L (22-29); Chloride 108 mmol/L (96-108); Estimated Glomerular Filt Rate > 60; Potassium 4.6 mmol/L (3.3-5.1); Sodium 144 mmol/L (135-145)
== END 2024-05-03 11:47 | disposition home or self-care (01) ==
LOC: HO.10HDL 11:46
PROVIDERS: Visit Provider Family Medicine
DX: I10 Essential (primary) hypertension (principal); E78.00 Pure hypercholesterolemia, unspecified
CPT/HCPCS: 36415; 80051; 82550; 82565; 84450; 84460; 84520

== ENCOUNTER 2024-10-14 11:18 | Outpatient (REF) | payer MEDICARE, SELFPAY ==
[2024-10-14 12:36] LABS: Anion Gap 13 (12-20); Blood Urea Nitrogen 18 mg/dL (9-16); Carbon Dioxide 26 mmol/L (22-29); Chloride 109 mmol/L (96-108); Estimated Glomerular Filt Rate > 60; Glucose Fasting 93 mg/dL (60-99); Magnesium 2.2 mg/dL (1.6-2.6); Potassium 4.5 mmol/L (3.3-5.1); Sodium 143 mmol/L (135-145)
== END 2024-10-14 11:19 | disposition home or self-care (01) ==
LOC: HO.LAB 11:18
PROVIDERS: PCP Family Medicine; Visit Provider Family Medicine
DX: I10 Essential (primary) hypertension (principal); E11.9 Type 2 diabetes mellitus without complications
CPT/HCPCS: 36415; 80051; 82565; 82947; 83735; 84520

== ENCOUNTER 2024-10-20 11:18 | Outpatient (AMB) | payer MEDICARE, SELFPAY ==
--- NOTE | 2024-10-20 11:19 | A.OFFVIS_ITS ---
Vital Signs 10/20/24 11:27 Weight 157 lb BP 152/90 H Blood Pressure Location Rt brachial Position Sitting Pulse 84 Intake Visit Reasons: inflamed lesion Lt arm Intake Note: Patient scheduled today's appointment concerned with lesion on lt upper arm. Noticed 2m ago. Patient c/o: lesion scabby, irritated. Denies bleeding. Hx of NMSC. 2nd concerned lesion on rt forehead. Not irritated, not bothersome. Would like to have it removed. 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 He wants both of these removed. He said these 2 lesions seemed to be increasing in size and have been bothering him with discomfort and itchiness. He has had multiple skin lesions removed in the past which turned out to be seborrheic keratosis on pathology. ON LICENSE OF [facility] Medical History Skin lesion of face Skin lesions Hypertension Surgical History History of excision of lesion (11/21/22) Family History Brother Prostate cancer Other Lung cancer Pancreatic cancer Social History service: No Current occupational status: retired Review of Systems Const Denies chills and Denies fever(s) Card Denies chest pain, Denies dyspnea and Denies dyspnea on exertion Resp Denies cough, Denies dyspnea and Denies dyspnea on exertion GI Denies hematochezia and Denies change in bowel habits Denies hematuria and Denies difficulty urinating Musc Denies back pain and Denies limited range of motion Neuro Denies focal weakness and Denies convulsions Psych Denies depression and Denies mood swings Physical Exam Const General: comfortable and no acute distress Orientation/consciousness: patient oriented x3 HEENT Other: Elevated scalp lesion, about 1.2 cm in diameter, clear margins, smooth and soft surface on the frontal area the scope Neck Neck: Yes no lymphadenopathy Resp Auscultation: clear to auscultation bilaterally Cardio Rhythm: regular rhythm GI Palpation (GI): Soft to palpation, nontender and no guarding Neuro General: patient oriented x3 Extrem Other: Left upper arm with an irregular elevated crusting skin lesion, about 2.2 cm in diameter Assessment & Plan Assessment & Plan (1) Skin lesions: Code(s): L98.9 - Disorder of the skin and subcutaneous tissue, unspecified Category: Medical Plan: He has skin lesions as described above. One is on the scalp on the frontal area and 1 is on the left upper arm. He wants both of these removed. I explained the technique of excision under local anesthesia. I reviewed the risks including but not limited to bleeding, infections and poor healing, as well as the benefits and alternatives. He understands and wants to proceed. This will be done on his next visit in the office under local anesthesia. Coding Level of Care Code Est Pt Level 3 (85043) Diagnoses Skin lesions L98.9
[2024-10-20 11:27] VITALS: BP 152/90; PULSE 84
== END 2024-10-20 11:39 | disposition home or self-care (01) ==
PROVIDERS: PCP Family Medicine; Visit Provider Surgery
DX: L98.9 Disorder of the skin and subcutaneous tissue, unspecified (principal)
CPT/HCPCS: 99213

== ENCOUNTER → 2024-10-20 11:18 | Outpatient (BNVA) | payer MEDICARE, SELFPAY | PROVIDERS: PCP Family Medicine; Visit Provider Surgery | DX: L98.9 Disorder of the skin and subcutaneous tissue, unspecified (principal) | CPT/HCPCS: 99212 ==

== ENCOUNTER 2024-10-31 11:19 | Outpatient (REF) | payer MEDICARE, SELFPAY | END 2024-10-31 11:20 | disposition home or self-care (01) | LOC: HO.LNP 11:19 | PROVIDERS: PCP Family Medicine; Visit Provider Surgery | DX: C44.41 Basal cell carcinoma of skin of scalp and neck (principal); C44.619 Basal cell carcinoma of skin of left upper limb, including shoulder | CPT/HCPCS: 11603; 11622; 88304; 88305; 99212 ==

== ENCOUNTER 2024-10-31 11:19 | Outpatient (AMB) | payer MEDICARE, SELFPAY ==
--- NOTE | 2024-10-31 11:26 | A.OFFVIS_ITS ---
Vital Signs 10/31/24 11:40 Height 5 ft 6 in Weight 157 lb BMI 25.3 Intake Visit Reasons: excision skin lesions (L) arm and scalp Intake Note: Office procedure: excision skin lesions left arm and scalp. Presser All Around Required: No Accompanied by: Self / Same As Patient Allergies No Known Allergies Allergy (Verified 10/31/24 11:) HPI HPI excision skin lesions (L) arm and scalp: Details: He is here for excision of a skin lesion on the scalp and on the left arm. [facility] Medical History (Reviewed 10/31/24 @ 11: by BHAVNA Baeza) Skin lesion of face Skin lesions Hypertension Surgical History (Reviewed 10/31/24 @ : by BHAVNA Baeza) History of excision of lesion (11/21/22) Family History (Reviewed 10/31/24 @ : by BHAVNA Baeza) Brother Prostate cancer Other Lung cancer Pancreatic cancer Social History (Reviewed 10/31/24 @ 11: by BHAVNA Baeza) service: No Current occupational status: retired Physical Exam Vital Signs: BMI result Body Mass Index 25.3 Office Procedures Excision Details: He was in reclining position. The area of the skin lesion on the frontal aspect of the scalp was prepped and draped. Lidocaine 1% was used for local anesthesia. I made an elliptical skin incision using blade 15 around this lesion. This was carried down through the full-thickness of the skin and subcutaneous fat. The skin lesion about 1.2 cm in diameter. This was completely excised with adequate margins. I closed the incision with full- thickness nylon 3-0 simple interrupted sutures. Dressings were applied. 43531-Htkakvom scalp/neck/hands/feet/genitalia 1.1cm-2cm Details: The area of the skin lesion on the left upper arm was prepped and draped. Lidocaine 1% was used for local anesthesia. I made an elliptical incision around this skin lesion with a blade 15. This was carried down through the full- thickness of the skin and subcutaneous fat to excise this entire lesion. This was a keratotic, ulcerating skin lesion. The incision was closed with full- thickness nylon 3-0 simple interrupted sutures. The skin lesion measured about 2.1 cm by 2.1 in dimension. Dressings were applied. He tolerated the procedure well. There were no immediate complications. 82504-rimlw/arms/legs 2.1-3cm Procedure code (CPT) selection complete Assessment & Plan Assessment & Plan (1) Skin lesions: Code(s): L98.9 - Disorder of the skin and subcutaneous tissue, unspecified Category: Medical Plan: Multiple skin lesions were removed. He was given wound care instructions. I will see him in the office for removal sutures in about 2 weeks. Coding Level of Care Code Global (37705) Diagnoses Skin lesions L98.9 CPT Codes Trunk/Arms/Legs - CPT: 09307-pnkzz/arms/legs 2.1-3cm ([id number]) Scalp/Neck/Hands/Feet/Genetalia - CPT: 92998-Rpchpkrm scalp/neck/hands/feet/genitalia 1.1cm-2cm ([id number])
[2024-10-31 11:40] VITALS: BMI 25.3
== END 2024-10-31 12:15 | disposition home or self-care (01) ==
PROVIDERS: PCP Family Medicine; Visit Provider Surgery
DX: C44.41 Basal cell carcinoma of skin of scalp and neck (principal); C44.629 Squamous cell carcinoma of skin of left upper limb, including shoulder; Z48.89 Encounter for other specified surgical aftercare
CPT/HCPCS: 11603; 11622; 99024

== ENCOUNTER 2024-11-17 10:20 | Outpatient (AMB) | payer MEDICARE, SELFPAY ==
[2024-11-17 10:30] VITALS: BMI 25.3
--- NOTE | 2024-11-17 10:30 | A.OFFVIS_ITS ---
Vital Signs 11/17/24 10:30 Height 5 ft 6 in Weight 157 lb BMI 25.3 Intake Visit Reasons: suture remover Intake Note: This patient presents for suture removal status post excision skin lesions. Pt c/o; reports no complaints. 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 He tolerated the procedure well and currently denies significant complaints. [facility] Medical History (Updated 11/17/24 @ 10:46 by Torrey Rogers MD) Basal cell carcinoma Skin lesion of face Skin lesions Hypertension Surgical History History of surgical removal of skin lesion (~10/31/24) History of excision of lesion (11/21/22) Family History Brother Prostate cancer Other Lung cancer Pancreatic cancer Social History service: No Current occupational status: retired Review of Systems Const Denies chills and Denies fever(s) Physical Exam Vital Signs: BMI result Body Mass Index 25.3 Const General: comfortable and no acute distress Skin Other: Excision sites on the scalp, frontal aspect and the left arm are both well healed, not infected, sutures intact Assessment & Plan Assessment & Plan (1) Basal cell carcinoma: Code(s): C44.91 - Basal cell carcinoma of skin, unspecified Category: Medical Plan: Both lesions on the scalp and the left arm were basal cell carcinoma on pathology. Margins are clear. The incision sites are well healed. I removed the sutures. He can follow up on a p.r.n. basis. Coding Level of Care Code Global (72132) Diagnoses Basal cell carcinoma C44.91
== END 2024-11-17 10:56 | disposition home or self-care (01) ==
PROVIDERS: PCP Family Medicine; Visit Provider Surgery
DX: C44.91 Basal cell carcinoma of skin, unspecified (principal)
CPT/HCPCS: 99024

== ENCOUNTER → 2024-11-17 10:20 | Outpatient (BNVA) | payer MEDICARE, SELFPAY | PROVIDERS: PCP Family Medicine; Visit Provider Surgery | DX: C44.91 Basal cell carcinoma of skin, unspecified (principal) | CPT/HCPCS: 99212 ==

== ENCOUNTER 2025-01-05 08:46 | Outpatient (AMB) | payer MEDICARE, SELFPAY ==
[2025-01-05 08:46] VITALS: BMI 25.2
--- NOTE | 2025-01-05 08:46 | MHC.OFFVIS ---
Vital Signs 01/05/25 08:46 Height 5 ft 6 in Weight 156 lb BMI 25.2 Intake Visit Reasons: Skin lesions Intake Note: This patient presents for skin lesions. Pt c/o; reports soreness,skin lesions lower extremity. 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 He has had this for about 2-3 months he says. He this has been increasing in size. He wants this removed He does have a history of basal cell carcinomas and had multiple lesions removed in the past. [facility] Medical History (Updated 01/05/25 @ 08:56 by Torrey Rogers MD) Skin lesion of left leg Basal cell carcinoma Skin lesion of face Skin lesions Hypertension Surgical History History of surgical removal of skin lesion (~10/31/24) History of excision of lesion (11/21/22) Family History Brother Prostate cancer Other Lung cancer Pancreatic cancer Social History service: No Current occupational status: retired Review of Systems Const Denies chills and Denies fever(s) Card Denies chest pain, Denies dyspnea and Denies dyspnea on exertion Resp Denies cough, Denies dyspnea and Denies dyspnea on exertion GI Denies hematochezia and Denies change in bowel habits Denies hematuria and Denies difficulty urinating Musc Denies back pain and Denies limited range of motion Neuro Denies focal weakness and Denies convulsions Psych Denies depression and Denies mood swings Physical Exam Vital Signs: BMI result Body Mass Index 25.2 Const General: comfortable and no acute distress Resp Effort & Inspection: normal respiratory effort Cardio Rate: regular rate Extrem Other: Left lower leg with a an elevated, keratotic skin lesion, about 1.2 cm in diameter and in height Assessment & Plan Assessment & Plan (1) Skin lesion of left leg: Code(s): L98.9 - Disorder of the skin and subcutaneous tissue, unspecified Category: Medical Plan: He wants this excised. I explained the technique of excision under local anesthesia. I reviewed the risks including but not limited to bleeding and infections as well as the benefits and alternatives. He has given consent. This will be done in the office under local anesthesia on his next visit. Coding Level of Care Code Est Pt Level 3 (24951) Diagnoses Skin lesion of left leg L98.9
== END 2025-01-05 08:59 | disposition home or self-care (01) ==
PROVIDERS: PCP Family Medicine; Visit Provider Surgery
DX: L98.9 Disorder of the skin and subcutaneous tissue, unspecified (principal)
CPT/HCPCS: 99213

== ENCOUNTER → 2025-01-05 08:46 | Outpatient (BNVA) | payer MEDICARE, SELFPAY | PROVIDERS: PCP Family Medicine; Visit Provider Surgery | DX: L98.9 Disorder of the skin and subcutaneous tissue, unspecified (principal) | CPT/HCPCS: 99212 ==

== ENCOUNTER → 2025-01-18 13:01 | Outpatient (BNVA) | payer MEDICARE, SELFPAY | PROVIDERS: PCP Family Medicine; Visit Provider Surgery | DX: L98.9 Disorder of the skin and subcutaneous tissue, unspecified (principal) ==

== ENCOUNTER 2025-01-24 12:35 | Outpatient (AMB) | payer MEDICARE, SELFPAY ==
--- NOTE | 2025-01-24 12:52 | MHC.OFFVIS ---
Intake Visit Reasons: excision skin lesion (L) lower leg Intake Note: Pt states, We're taking something off my leg. Post Form Remover Required: No Allergies No Known Allergies Allergy (Verified 01/24/25 12:54) Medication List - Last Reconciled 01/24/25 by Bob Krause RN aspirin 81 mg PO DAILY atorvastatin (Lipitor) 10 mg PO BEDTIME cholecalciferol (vitamin D3) (Vitamin D3) 25 mcg PO DAILY losartan 75 mg (1.5 x 50 mg) PO DAILY metoprolol succinate ER 50 mg PO DAILY multivitamin 1 tab PO DAILY HPI HPI excision skin lesion (L) lower leg: Details: He is here for excision of a skin lesion in the left lower leg. [facility] Medical History Skin lesion of left leg Basal cell carcinoma Skin lesion of face Skin lesions Hypertension Surgical History History of surgical removal of skin lesion (~10/31/24) History of excision of lesion (11/21/22) Family History Brother Prostate cancer Other Lung cancer Pancreatic cancer Social History service: No Current occupational status: retired Office Procedures Excision Details: He was in supine position. The area of the lesion on the left lower leg anteriorly was prepped and draped. Lidocaine 1% was used for local anesthesia. I made an elliptical incision on the skin surrounding this skin lesion with a blade 15. This was carried down through the full-thickness of the skin and subcutaneous fat to excise this entire lesion. The lesion was about 1.3 cm in diameter I closed the incision with full-thickness nylon 3-0 simple interrupted sutures. Dressings were applied. He tolerated procedure well. There were no immediate complications. 56717-enhlo/arms/legs 1.1-2cm Procedure code (CPT) selection complete Assessment & Plan Assessment & Plan (1) Skin lesion of left leg: Code(s): L98.9 - Disorder of the skin and subcutaneous tissue, unspecified Category: Medical Plan: Excision was done in the office. He tolerated procedure well. He was given wound care instructions. He we will be seen for follow-up in 2 weeks for removal of sutures. Orders: Orders Surgical 01/24/25 L98.9 - Disorder of the skin and subcutaneous tissue, unspecified Coding Level of Care Code Procedure Only Diagnoses Skin lesion of left leg L98.9 CPT Codes Trunk/Arms/Legs - CPT: 53819-hisec/arms/legs 1.1-2cm ([id number])
== END 2025-01-24 13:20 | disposition home or self-care (01) ==
LOC: HO.HGS 12:36
PROVIDERS: PCP Family Medicine; Visit Provider Surgery
DX: B07.9 Viral wart, unspecified (principal); L98.9 Disorder of the skin and subcutaneous tissue, unspecified
CPT/HCPCS: 11402

== ENCOUNTER 2025-01-24 12:35 | Outpatient (REF) | payer MEDICARE, SELFPAY | END 2025-01-24 12:36 | disposition home or self-care (01) | LOC: HO.LNP 12:35 | PROVIDERS: PCP Family Medicine; Visit Provider Surgery | DX: B07.8 Other viral warts (principal); L98.9 Disorder of the skin and subcutaneous tissue, unspecified | CPT/HCPCS: 11402; 88304; 88305 ==

== ENCOUNTER 2025-02-08 10:58 | Outpatient (AMB) | payer MEDICARE, SELFPAY ==
--- NOTE | 2025-02-08 11:10 | A.OFFVIS_ITS ---
Vital Signs 02/08/25 11:12 Height 5 ft 6 in Weight 154 lb 5.177 oz BMI 24.9 Intake Visit Reasons: 2 week stitch removal lesion (L) lower leg Intake Note: Patient is seen in office for 2 weeks follow up visit, post removal lesion (L) lower leg. 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 He tolerated procedure well and currently denies complaints. [facility] Medical History (Updated 02/08/25 @ 11:12 by Torrey Rogers MD) Verruca vulgaris Skin lesion of left leg Basal cell carcinoma Skin lesion of face Skin lesions Hypertension Surgical History History of surgical removal of skin lesion (~10/31/24) History of excision of lesion (11/21/22) Family History Brother Prostate cancer Other Lung cancer Pancreatic cancer Social History service: No Current occupational status: retired Review of Systems Const Denies chills and Denies fever(s) Physical Exam Const General: no acute distress Extrem Other: Excision site well healed, not infected, Assessment & Plan Assessment & Plan (1) Verruca vulgaris: Code(s): B07.9 - Viral wart, unspecified Category: Medical Plan: Status post excision of a skin lesion from the left leg. His path report shows a verruca vulgaris. I explained to him the benign nature of this pathology. His sutures were removed. He can follow up on a p.r.n. basis. Coding Level of Care Code Global (25192) Diagnoses Verruca vulgaris B07.9
[2025-02-08 11:12] VITALS: BMI 24.9
== END 2025-02-08 11:15 | disposition home or self-care (01) ==
LOC: HO.HGS 10:59
PROVIDERS: PCP Family Medicine; Visit Provider Surgery
DX: B07.9 Viral wart, unspecified (principal)
CPT/HCPCS: 99024

== ENCOUNTER → 2025-02-08 10:58 | Outpatient (BNVA) | payer MEDICARE, SELFPAY | PROVIDERS: PCP Family Medicine; Visit Provider Surgery | DX: Z48.02 Encounter for removal of sutures (principal); Z87.2 Personal history of diseases of the skin and subcutaneous tissue; Z98.890 Other specified postprocedural states | CPT/HCPCS: 99212 ==

== ENCOUNTER 2025-04-11 11:26 | Outpatient (REF) | payer MEDICARE, SELFPAY ==
[2025-04-11 14:29] LABS: Alanine Aminotransferase 26 U/L (0-40); Anion Gap 9 (12-20); Aspartate Amino Transferase 31 U/L (5-37); Blood Urea Nitrogen 15 mg/dL (9-16); Carbon Dioxide 28 mmol/L (22-29); Chloride 108 mmol/L (96-108); Cholesterol 108 mg/dL (<200); Estimated Glomerular Filt Rate > 60; HDL Cholesterol 26 mg/dL (>40); LDL Cholesterol Calculated 38 mg/dL (<100); Potassium 4.4 mmol/L (3.3-5.1); Sodium 141 mmol/L (135-145); Triglycerides 222 mg/dL (<150)
== END 2025-04-11 11:27 | disposition home or self-care (01) ==
LOC: HO.10HDL 11:26
PROVIDERS: Visit Provider Family Medicine
DX: I10 Essential (primary) hypertension (principal); E78.00 Pure hypercholesterolemia, unspecified; Z79.899 Other long term (current) drug therapy
CPT/HCPCS: 36415; 80051; 80061; 82550; 82565; 84450; 84460; 84520

== ENCOUNTER 2025-07-17 11:55 | Outpatient (REF) | payer MEDICARE, SELFPAY ==
[2025-07-17 12:55] LABS: MANUAL DIFF FLAG NO
[2025-07-17 13:08] LABS: Hematocrit 47.0 % (42.0-52.0); Hemoglobin 15.5 g/dl (14.0-18.0); Imm Gran Abs Auto 0.01 X10*3/uL (0.00-0.03); Imm Gran Pct Auto 0.1 % (0.0-0.4); Lymphocytes Absolute Auto 1.1 X10*3/uL (1.2-4.9); Mean Corpuscular HGB Conc 33.0 g/dl (31.0-36.0); Mean Corpuscular Hemoglobin 31.3 pg (27.0-33.0); Mean Corpuscular Volume 94.8 fL (80.0-98.0); NRBC Abs Auto 0.000 X10*3/uL (0.0-0.012); NRBC Pct Auto 0.0 /100WBC (0.0-0.2); Platelet Count 195 X10*3/uL (160-400); Red Blood Count 4.96 X10*6/uL (4.60-5.80); White Blood Count 7.6 X10*3/uL (4.8-10.8)
[2025-07-17 13:46] LABS: Alanine Aminotransferase 27 U/L (0-40); Albumin Level 4.4 g/dL (3.5-5.0); Alkaline Phosphatase 78 U/L (39-117); Anion Gap 10 (12-20); Aspartate Amino Transferase 25 U/L (5-37); Blood Urea Nitrogen 17 mg/dL (9-16); Calcium 8.7 mg/dL (8.4-10.2); Carbon Dioxide 28 mmol/L (22-29); Chloride 109 mmol/L (96-108); Estimated Glomerular Filt Rate > 60; Potassium 4.6 mmol/L (3.3-5.1); Sodium 142 mmol/L (135-145); Total Protein 6.9 g/dL (6.5-8.0)
== END 2025-07-17 11:56 | disposition home or self-care (01) ==
LOC: HO.10HDL 11:55
PROVIDERS: Visit Provider Physician Assistant Medical
DX: R42 Dizziness and giddiness (principal); R79.89 Other specified abnormal findings of blood chemistry
CPT/HCPCS: 36415; 80053; 82306; 84443; 85025